=== PATIENT | female | born 1965 | race African-American/Black ===

== ENCOUNTER 2021-09-27 14:00 | Emergency (ER) | payer OTHER ==
[2021-09-27 14:11] VITALS: TEMP 98.2; BMI 33.3
[2021-09-27 19:28] LABS: BASO % 0.3 % (0-2.0); EOS % 0.7 % (0-4.5); HEMATOCRIT 35.5 % (32.4-45.2); LYMPH % 30.2 % (8-40); MCH 29.9 pg (25.7-33.7); MCHC 33.7 g/dl (32.0-36.0); MEAN CELL VOLUME 88.8 fl (80-96); MEAN PLT VOLUME 8.6 fl (7.5-11.1); MONO % 7.2 % (3.8-10.2); NEUT % 61.6 % (42.8-82.8); PLATELET COUNT 351 10^3/uL (134-434); RDW 13.3 % (11.6-15.6)
[2021-09-27 19:30] LABS: EPI CELLS 23 /uL (0-25.1); HYALINE CASTS 1 /uL (0-3.1); URINE APPEARANCE CLEAR; URINE BACTERIA 219 /uL (0-1359); URINE BILIRUBIN NEGATIVE (NEGATIVE); URINE COLOR YELLOW; URINE GLUCOSE (UA) NEGATIVE (NEGATIVE); URINE KETONE NEGATIVE (NEGATIVE); URINE LEUK ESTERASE 2+ (NEGATIVE); URINE NITRITE NEGATIVE (NEGATIVE); URINE PROTEIN 1+ (NEGATIVE); URINE RBC 8 /uL (0-23.9); URINE UROBILINOGEN 0.2 mg/dL (0.2-1.0); URINE WBC 31 /uL (0-25.8)
[2021-09-27 19:55] LABS: ALBUMIN 3.5 g/dl (3.4-5.0); BLOOD UREA NITROGEN 24.3 mg/dL (7-18)
[2021-09-27 19:58] LABS: CREATININE 1.1 mg/dL (0.55-1.3)
[2021-09-27 20:00] LABS: BILIRUBIN,TOTAL 0.7 mg/dL (0.2-1); TOT PROT 7.2 g/dl (6.4-8.2)
[2021-09-27] MEDS ORDERED: DALBAVANCIN HCL 1,500 MG in DEXTROSE 5%-WATER - 500 ML IVPB ONE (20:17)
[2021-09-27] MEDS ORDERED: DALBAVANCIN HCL 500 MG VIAL (RESTRICTED TO ID ONLY) IVPB ONE (20:35)
[2021-09-27 22:46] VITALS: BP 157/92; PULSE 98
== END 2021-09-27 22:47 | disposition home or self-care (01) ==
LOC: JER 14:00
PROC: 3E033GC Introduction of Other Therapeutic Substance into Peripheral Vein, Percutaneous Approach (ICD-10-PCS; principal; 2021-09-27)
DX: L03.116 Cellulitis of left lower limb (principal); R60.0 Localized edema
CPT/HCPCS: 36415; 73630-TC-RT-FY; 80053; 81003; 83605; 85025; 87040; 87070; 87086; 87205; 93971-TC; 99284-25; J0875

== ENCOUNTER 2021-11-25 04:13 | Day surgery (SDC) | payer OTHER ==
[2021-11-22 11:06] VITALS: BMI 32.1
[2021-11-25 10:19] VITALS: TEMP 97.8
[2021-11-25 10:33] VITALS: PULSE 87
[2021-11-25 12:44] VITALS: BP 115/73
== END 2021-11-25 12:00 | disposition home or self-care (01) ==
LOC: JASU-ENDO 04:13
PROVIDERS: ATTEND Internal Medicine Gastroenterology
PROC: 0DBN8ZX Excision of Sigmoid Colon, Via Natural or Artificial Opening Endoscopic, Diagnostic (ICD-10-PCS; principal; 2021-11-25 08:45)
DX: Z12.11 Encounter for screening for malignant neoplasm of colon (principal); D12.7 Benign neoplasm of rectosigmoid junction; K64.8 Other hemorrhoids
CPT/HCPCS: 88305-TC